=== PATIENT | male | born 1930 | race Caucasian/White ===

== ENCOUNTER 2016-04-18 12:41 | Emergency (ER) | payer OTHER ==
--- NOTE | ~2016-04-18 | CT2 ---
[facility] A Service of [facility] & [facility] RADIOLOGY TEXT RESULTS PATIENT: MAKENZIE CORADO LOCATION: [facility] : 30 UNIT #: [id number] AGE: [address]: Breezy Prater MD SEX: M ORDER DR: [id number] [facility] [address] [place], [place] [address] [id number] E MR#: [id number] Acc #: [id number] NAME: MAKENZIE CORADO : 1930 SEX: M STUDY DATE/TIME: 04/18/2016 14:38 UNIT: [facility] ROOM: STUDY DESCRIPTION: CT Abd and Pelv W Cont Attending Physician: Breezy Prater M.D. Ordering Physician: Breezy Prater M.D. Primary Care Physician: Fortunato Stovall M.D. MEDICAL IMAGING REPORT This report is preliminary unless electronic signature is present EXAM CT abdomen and pelvis with contrast HISTORY Left lower quadrant pain since 9 o'clock. COMPARISON 01/21/2015. TECHNIQUE The patient was given 100 mL of Isovue 370 and axial 5 mm images were obtained through the abdomen and pelvis and sagittal and coronal reconstructions were generated. This CT exam was performed with one or more of the following radiation dose reduction techniques: automatic control, adjustment of mA and/or kV according to patient size, and iterative reconstruction. FINDINGS The lung bases are clear. The liver, spleen, pancreas and right adrenal gland are normal. The left adrenal gland has a low density nodule measuring 2.2 cm and measures 6 Hounsfield units and is therefore an adenoma. It is unchanged from 01/21/2015. The kidneys show cortical atrophy and there is a small cyst in the right kidney measuring about 15 mm in diameter. There may be tiny stones layering in the gallbladder otherwise the gallbladder is normal. The aorta is normal in size. An IVC filter is present. There is no adenopathy. The bowel is normal except for mild distention of the rectum due to inspissated fecal material. This measures only 7.5 cm in transverse dimension. The bladder is normal. 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 Bones are unremarkable. IMPRESSION 1. No acute findings. [facility]. [facility] A Service of [facility] & [facility] RADIOLOGY TEXT RESULTS PATIENT: MAKENZIE CORADO LOCATION: [facility] : 30 UNIT #: [id number] AGE: [address]: Breezy Prater MD SEX: M ORDER DR: 2. The rectum is distended with some inspissated fecal material and it measures 7.5 cm in transverse dimension. 3. Possible small gallstones. 4. Otherwise normal. Dictated by... Cleve Black M.D. THIS IS AN ELECTRONICALLY VERIFIED REPORT Cleve Black M.D. at 04/18/2016 4:00 PM ILAN/steven TD: 04/18/2016 15:28 JOB #: [id number] MEDICAL IMAGING REPORT COPY
[~2016-04-18 12:41] MED LIST: (NONE)500 MCG PO; 24 HOUR ALLER15.8 ML; ASPIRIN EC81 M1 PO; ASPIRIN PO; ASPIRIN81 M2 PO; ATORVASTATIN CA10 MG PO; CALCIUM 250+D T1 TAB PO; CALCIUM1 TAB.CHEW; CARAFATE1 G PO; CARAFATE1 GM PO; CERTAGEN PO; COLACE PO; CORDARONE200 M1 PO; COUMADIN2.5 MG PO; DIFLUCAN100 MG; DITROPAN PO; DITROPAN-XL5 MG PO; DITROPAN5 MG PO; DOCUSATE SODIU100 MG PO; FERROUS GL325 ( 37.5 PO; FERROUS SULFATE PO; FISH OIL 1,0001 CAP PO; FLOMAX0.4 M1 PO; FLOMAX0.4 MG PO; FLONASE 0.05% N16 G1; FLONASE 0.05% N16 G1 INH; GABAPENTIN400 M2 PO; GLUCOPHAGE500 M1 PO; GLUCOPHAGE500 MG PO; IRON1 TAB PO; KEFLEX250 M1 PO; LANTUS100 UNITS/; LASIX20 MG PO; LEVO-T75 MCG PO; LEVOTHYROXINE50 MCG PO; LIPITOR PO; LISINOPRIL10 MG PO; LISINOPRIL20 MG PO; LOPRESSOR PO; MELATIN3 MG PO; METAMUCIL SMOOT1 PKT PO; METAMUCIL1 PKT PO; METFORMIN HCL500 M1 PO; METOPROLOL SUCC50 MG PO; METOPROLOL TART25 MG PO; MININEB; MIRALAX17 GM PO; MULTI VITAMIN1 EACH PO; MULTIVITAM1 TAB.CH11 PO; NEURONTIN PO; NIACIN ER500 MG PO; NITROGYLCERIN SUBLINGUAL; NORVASC PO; NOVOLOG100 U/ML; NYSTATIN5 ML PO; OMEPRAZOLE20 M2 PO; OSTEO BI-FLEX1 EAC1 PO; PAIN RELIEF325 M1 PO; PAIN RELIEF325 MG PO; PANTOPRAZOLE SO40 MG PO; PINDOLOL5 MG PO; POTASSIUM CHLO10 MEQ PO; PRILOSEC20 MG PO; PROAIR HFA8.5 GM IN; PROTONIX PO; RAPAFLO4 MG PO; SPIRONOLACTONE-1 TAB PO; STOOL SOFTENER1 EAC1 PO; SYNTHROID PO; TEMAZEPAM PO; TUSSIN400 MG PO; VITAMIN C PO; VITAMIN D3400 UNI2 PO; VITAMIN D400 UNI1 PO; XOPENEX HFA15 GM IN; ZYRTEC10 M2 PO; ZYRTEC5 MG PO; [UNRECOGNIZED DRUG - OTHER] PO
[2016-04-18 13:02] LABS: BASOPHIL# 0.1 X10e3 (0-0.3); BASOPHIL% 0.7 % (0-2.5); EOSINOPHIL# 0.2 X10e3 (0-0.7); EOSINOPHIL% 3.3 % (0.0-7.0); HEMATOCRIT 40.8 % (38.0-50.0); HEMOGLOBIN 13.8 gm/dL (13.0-16.0); LYMPHOCYTE# 1.7 X10e3 (1.0-3.5); LYMPHOCYTE% 22.5 % (17.0-45.0); MEAN CELL VOLUME 94.5 FL (83-96); MEAN CORPUSCULAR HEMOGLOBIN 31.9 PG (28-34); MEAN CORPUSCULAR HGB CONC 33.7 g/dL (30-36); MEAN PLATELET VOLUME 7.9 FL (6.5-11.5); MONOCYTE# 0.6 X10e3 (0-1.0); MONOCYTE% 7.7 % (3.0-12.0); NEUTROPHIL# 4.9 X10e3 (1.5-7.1); NEUTROPHIL% 65.8 % (40-75); PLATELET COUNT 184 X10e3 (140-420); RED BLOOD COUNT 4.32 X10e (3.90-5.60); RED CELL DISTRIBUTION WIDTH 14.2 % (11.0-15.5); WHITE BLOOD COUNT 7.4 X10e3 (4.0-10.5)
[2016-04-18 13:03] LABS: DIFF IND NO
[2016-04-18 13:14] LABS: URINE SOURCE CLEAN CATCH
[2016-04-18 13:21] LABS: URINE APPEARANCE CLEAR; URINE BILIRUBIN NEG (NEG); URINE BLOOD NEG (NEG); URINE COLOR YELLOW; URINE GLUCOSE NEG (NEG); URINE KETONE NEG (NEG); URINE LEUKOCYTE ESTERASE NEG (NEG); URINE NITRATE NEG (NEG); URINE PROTEIN NEG (NEG); URINE SPECIFIC GRAVITY 1.012 (1.003-1.035); URINE UROBILINOGEN 0.2 MG/DL (NEG)
[2016-04-18 13:25] LABS: CULTURE INDICATED? NO
[2016-04-18 13:31] LABS: ALBUMIN SERUM 3.4 g/dL (3.5-5.0); ALKALINE PHOSPHATASE 86 U/L (32-92); ALT (SGPT) 11 U/L (10-40); AST (SGOT) 9 U/L (10-42); BILIRUBIN,TOTAL 0.4 mg/dL (0.2-2.0); BLOOD UREA NITROGEN 21 mg/dL (9-23); BUN/CREATININE RATIO 19.09; CALCIUM SERUM 8.8 mg/dL (8.4-10.2); CARBON DIOXIDE 29 mmol/L (22-31); CHLORIDE 104 mmol/L (100-111); CREATININE SERUM 1.1 mg/dL (0.6-1.4); GLOM FILT RATE Estimated ABOVE60 mL/min (>60); GLUCOSE FASTING 123 mg/dL (70-110); LIPASE 10 U/L (22-51); POTASSIUM 4.6 mmol/L (3.5-5.1); PROTEIN TOTAL SERUM 6.3 g/dL (6.0-8.3); SODIUM 139 mmol/L (135-145)
[2016-04-18 13:34] LABS: AMYLASE 6 U/L (0-46)
== END 2016-04-18 16:08 | disposition home or self-care (01) ==
LOC: CED 12:41
PROVIDERS: Emergency Medicine
DX: R10.32 Left lower quadrant pain (principal); E11.22 Type 2 diabetes mellitus with diabetic chronic kidney disease; N18.9 Chronic kidney disease, unspecified; K21.9 Gastro-esophageal reflux disease without esophagitis; I48.91 Unspecified atrial fibrillation; Z98.890 Other specified postprocedural states; Z88.5 Allergy status to narcotic agent; Z91.040 Latex allergy status; Z79.899 Other long term (current) drug therapy
CPT/HCPCS: 36415; 51701; 74177; 80053; 81003; 82150; 83690; 85025; 96360; 99284; Q9967